=== PATIENT | female | born 2000 | race Caucasian/White ===

== ENCOUNTER 2020-05-17 01:06 | Emergency (ER) | payer BC ==
[2020-05-17 01:15] VITALS: BP 147/88; PULSE 80
--- NOTE | 2020-05-17 01:35 | EDM.PDOC ---
ED HPI GENERAL MEDICAL PROBLEM - General Chief Complaint: Allergic Reaction Stated Complaint: INHALED BLEACH FEELS LIKE THROAT IS CLOSING Time Seen by Provider: 05/17/20 01:19 Source of Information: Reports: Patient History Limitations: Reports: No Limitations - History of Present Illness INITIAL COMMENTS - FREE TEXT/NARRATIVE: Ms. Berrios is a pleasant 19-year-old woman who now presents to the ED stating that she developed the sensation of tightness in her throat, along with a sore throat, after accidentally inhaling some chlorine bleach cleaning spray vapors around 00:45 this morning. She has not previously been exposed to this particular cleaning product. She states that she got some fresh air and drank some water, but her symptoms persisted. Here in the ED, the patient's initial BP is found to be mildly elevated at 147/88, otherwise, she is hemodynamically stable, afebrile, saturating 98% on room air. Other than this morning's events, the patient denies having a recent fever, chills, sore throat, ear pain, nasal or sinus congestion, cough, dyspnea, chest pain, palpitations, nausea, vomiting, constipation, diarrhea, abdominal pain, urinary symptoms, recent weight gain or weight loss, recent bloody bowel movements or black bowel movements, recent joint aches, headaches, or rashes. The patient does not have a PCP. She did not receive an influenza vaccine this season, and declined an offer to receive one here in the ED. - Related Data Allergies Allergy/AdvReac Type Severity Reaction Status Date / Time amoxicillin Allergy Rash Verified 05/17/20 01:12 Home Meds: Home Meds . [No Known Home Meds] 05/17/20 [History] Past Medical History Endocrine/Metabolic History: Reports: Obesity/BMI 30+ Social & Family History - Tobacco Use Tobacco Use Within Last Twelve Months: Vaping (Vaped nicotine x 2 yrs, quit Mar 2020) - Caffeine Use Caffeine Use: Reports: Energy Drinks, Soda - Alcohol Use Alcohol Use History: Yes Alcohol Use Frequency: Socially - Recreational Drug Use Recreational Drug Use: No - Living Situation & Occupation Living situation: Reports: Single, Other (With roommates) Occupation: Employed ([employer]) ED ROS GENERAL - Review of Systems Review Of Systems: Comprehensive ROS is negative, except as noted in HPI. ED EXAM, GENERAL - Physical Exam Exam: See Below Exam Limited By: No Limitations General Appearance: Alert, WD/WN, No Apparent Distress Eye Exam: Bilateral Eye: EOMI, Normal Inspection Ears: Normal External Exam, Normal Canal, Hearing Grossly Normal, Normal TMs Nose: Normal Inspection, Normal Mucosa, No Blood Throat/Mouth: Normal Inspection, Normal Lips, Normal Teeth, Normal Gums, Normal Oropharynx (no erythema or mucous membrane swelling), Normal Voice, No Airway Compromise Head: Atraumatic, Normocephalic Neck: Normal Inspection, Supple, Non-Tender, Full Range of Motion. No: Lymphadenopathy (L), Lymphadenopathy (R) Respiratory/Chest: No Respiratory Distress, Lungs Clear, Normal Breath Sounds, No Accessory Muscle Use. No: Decreased Breath Sounds, Crackles, Rhonchi, Wheezing, Stridor, Prolonged Expiration Cardiovascular: Normal Peripheral Pulses, Regular Rate, Rhythm, No Gallop, No JVD, No Murmur, No Rub Peripheral Pulses: 3+: Radial (L), Radial (R) GI/Abdominal: Normal Bowel Sounds, Soft, Non-Tender, No Organomegaly, No Distention, No Abnormal Bruit, No Mass Back Exam: Normal Inspection, Full Range of Motion, NT Extremities: Normal Inspection, Normal Range of Motion, No Pedal Edema, Normal Capillary Refill Neurological: Alert, Oriented, Normal Cognition, No Motor/Sensory Deficits Psychiatric: Normal Affect Skin Exam: Warm, Dry, Intact, Normal Color, No Rash Course - Vital Signs Last Recorded V/S: Last Vital Signs Temp 36.8 C 05/17/20 01:12 Pulse 80 05/17/20 01:12 Resp 17 05/17/20 01:12 BP 147/88 H 05/17/20 01:12 Pulse Ox 98 05/17/20 01:12 - Re-Assessments/Exams Free Text/Narrative Re-Assessment/Exam: 05/17/20 01:29 As above, the patient accidentally inhaled some vapor from a chlorine bleach cleaning spray that she was using this morning, causing the sensation of throat tightness and soreness. On physical exam, there is no suggestion of a chemical burn to the mucous membranes of her nose or mouth. I explained to the patient that the chlorine bleach may have caused some local irritation, but no actual burn, and no medical treatment is necessary. The sensation should resolve on its own overnight. Departure - Departure Time of Disposition: 01:30 Disposition: Home, Self-Care 01 Condition: Good Clinical Impression: Mucous membrane inflammation - Discharge Information *PRESCRIPTION DRUG MONITORING PROGRAM REVIEWED*: Not Applicable *COPY OF PRESCRIPTION DRUG MONITORING REPORT IN PATIENT DARWIN: Not Applicable Referrals: PCP,None [Primary Care Provider] - Additional Instructions: You were seen in the emergency room after developing the sensation of tightening in your throat and a sore throat after accidentally inhaling some chlorine bleach cleaning spray vapor. On examination, no physical abnormalities were found. Based on your history and physical examination, you are most likely experiencing some mucous membrane irritation due to the chemical. No medical treatment is necessary. It should resolve on its own overnight. If any other problems, please do not hesitate to return to the ER. Sepsis Event Note (ED) - Evaluation Sepsis Screening Result: No Definite Risk - Focused Exam Vital Signs: Vital Signs Temp Pulse Resp BP Pulse Ox 05/17/20 01:12 36.8 C 80 17 147/88 H 98
== END 2020-05-17 01:36 | disposition home or self-care (01) ==
LOC: JD.ED 01:06
DX: K12.1 Other forms of stomatitis (principal); Z87.891 Personal history of nicotine dependence; E66.9 Obesity, unspecified; Z68.54 Body mass index [BMI] pediatric, 95th percentile for age to less than 120% of the 95th percentile for age; Z88.1 Allergy status to other antibiotic agents
CPT/HCPCS: 99282; 99283

== ENCOUNTER 2020-07-12 12:46 | Emergency (ER) | payer BC ==
[2020-07-12 12:59] VITALS: BP 147/87; PULSE 89
--- NOTE | 2020-07-12 13:26 | EDM.PDOC ---
ED HPI GENERAL MEDICAL PROBLEM - General Chief Complaint: Chest Pain Stated Complaint: CHEST PAIN Time Seen by Provider: 07/12/20 13:10 Source of Information: Reports: Patient History Limitations: Reports: No Limitations - History of Present Illness INITIAL COMMENTS - FREE TEXT/NARRATIVE: 19-year-old female presents to the emergency department with complaints of chest pain x4 days. Patient states she was sitting in her car on her break from work when the chest pain developed. She describes it as a stabbing type of chest pain that ranges from her sternum to her shoulder and then into her scapula. Patient states it is fairly constant and does not worsen with taking a deep breath. She does vape. She also reports intermittent right upper quadrant abdominal pain under her right rib. Onset: Gradual Middle Chest Pain Score (Numeric/FACES): 5 - Related Data Allergies Allergy/AdvReac Type Severity Reaction Status Date / Time amoxicillin Allergy Rash Verified 07/12/20 12:55 Home Meds: Home Meds . [No Known Home Meds] 05/17/20 [History] Past Medical History - Past Health History Medical/Surgical History: Denies Medical/Surgical History HEENT History: Reports: None Cardiovascular History: Reports: None Respiratory History: Reports: Bronchitis, Recurrent, SOB Other Respiratory History: meconium staining at , lung issues in past--colds Gastrointestinal History: Reports: None Genitourinary History: Reports: None SIGN INSTALLER History: Reports: None Musculoskeletal History: Reports: None Neurological History: Reports: Migraines Psychiatric History: Reports: Anxiety, Depression Endocrine/Metabolic History: Reports: Obesity/BMI 30+ Hematologic History: Reports: None Immunologic History: Reports: None Oncologic (Cancer) History: Reports: None Dermatologic History: Reports: Other (See Below) Other Dermatologic History: dermatitis itchy rash on arms - Infectious Disease History Infectious Disease History: Reports: None - Past Surgical History Head Surgeries/Procedures: Reports: None HEENT Surgical History: Reports: None GI Surgical History: Reports: None Social & Family History - Family History Family Medical History: No Pertinent Family History HEENT: Reports: None Cardiac: Reports: CAD, Hypertension, Prior Cardiac Arrest Respiratory: Reports: None GI: Reports: None : Reports: Other (See Below) Other Family History: kidney dx OBGYN: Reports: None Musculoskeletal: Reports: None Neurological: Reports: None Psychiatric: Reports: None Endocrine/Metabolic: Reports: None Hematologic: Reports: None Oncologic: Reports: Other (See Below) Other Oncologic Family History: melanoma - Tobacco Use Years of Tobacco use: 3 - Caffeine Use Caffeine Use: Reports: Energy Drinks, Soda - Recreational Drug Use Recreational Drug Use: No - Living Situation & Occupation Living situation: Reports: Single, Other (With roommates) Occupation: Employed ([employer]) ED ROS GENERAL - Review of Systems Review Of Systems: See Below Constitutional: Reports: No Symptoms. Denies: Fever, Chills, Diaphoresis HEENT: Reports: No Symptoms Respiratory: Reports: No Symptoms. Denies: Shortness of Breath, Cough, Sputum Cardiovascular: Reports: Chest Pain (Left chest and shoulder). Denies: Dyspnea on Exertion, Edema, Lightheadedness, Palpitations Endocrine: Reports: No Symptoms GI/Abdominal: Reports: Abdominal Pain (Intermittent right upper quadrant). Denies: Constipation, Diarrhea, Nausea, Vomiting : Reports: No Symptoms Musculoskeletal: Reports: No Symptoms Skin: Reports: No Symptoms Neurological: Reports: No Symptoms Psychiatric: Reports: No Symptoms Hematologic/Lymphatic: Reports: No Symptoms Immunologic: Reports: No Symptoms ED EXAM, GENERAL - Physical Exam Exam: See Below Exam Limited By: No Limitations General Appearance: Alert, WD/WN, No Apparent Distress Eye Exam: Bilateral Eye: PERRL Ears: Normal External Exam, Hearing Grossly Normal Nose: Normal Inspection Throat/Mouth: Normal Inspection, Normal Voice, No Airway Compromise Head: Atraumatic, Normocephalic Neck: Normal Inspection, Supple, Non-Tender, Full Range of Motion Respiratory/Chest: No Respiratory Distress, Lungs Clear, Normal Breath Sounds, No Accessory Muscle Use. No: Chest Non-Tender (Left chest wall tenderness noted with palpation) Cardiovascular: Normal Peripheral Pulses, Regular Rate, Rhythm, No Edema, No Murmur Peripheral Pulses: 2+: Radial (L), Radial (R) GI/Abdominal: Normal Bowel Sounds, Soft, No Distention. No: Tender (Right upper quadrant) (Female) Exam: Deferred Rectal (Female) Exam: Deferred Back Exam: Normal Inspection, Full Range of Motion Extremities: Normal Inspection, Normal Range of Motion, Non-Tender, No Pedal Edema, Normal Capillary Refill Neurological: Alert, Oriented, Normal Cognition Psychiatric: Normal Affect, Normal Mood Skin Exam: Warm, Dry, Intact, Normal Color, No Rash Lymphatic: No Adenopathy #1 Interpretation EKG Date: 07/12/20 Time: 13:45 Rhythm: NSR Rate (Beats/Min): 71 [place]: Normal P-Wave: Present QRS: Normal ST-T: Normal QT: Normal Comparison: NA - No Prior EKG Course - Vital Signs Text/Narrative:: 19-year-old female here for evaluation of left chest pain. Patient states that has been fairly constant for the past 4 days. She denies fever chills, nausea, vomiting, diarrhea. She denies cough. She does admit to vaping. She also complains of intermittent right upper quadrant abdominal pain. Upon assessment chest pain is not worsened by deep breathing however it is exacerbated with palpation to left chest wall and left shoulder. Bowel sounds are positive x4 quadrants. And patient has abdominal pain tenderness to right upper quadrant with deep palpation. She states her last bowel movement was this morning. Denies any issues with constipation or diarrhea. I have ordered a CBC, CMP, troponin, chest x-ray, EKG and a KUB Last Recorded V/S: Last Vital Signs Temp 97.6 F 07/12/20 12:57 Pulse 89 07/12/20 12:57 Resp 20 07/12/20 12:57 BP 147/87 H 07/12/20 12:57 Pulse Ox 99 07/12/20 12:57 - Orders/Labs/Meds Orders: Active Orders 24 hr Category Date Time Status EKG Documentation Completion [RC] ASDIRECTED Care 07/12/20 13:15 Active Abdomen 1V Flat [CR] Stat Exams 07/12/20 13:14 Taken Chest 2V [CR] Stat Exams 07/12/20 13:14 Taken EKG 12 Lead [EK] Stat Ther 07/12/20 13:14 Ordered Labs: Laboratory Tests 07/12/20 07/12/20 Range/Units 13:27 13:27 WBC 7.30 (3.98-10.04) K/mm3 RBC 5.32 H (3.98-5.22) M/mm3 Hgb 10.4 L D (11.2-15.7) gm/dl Hct 35.9 (34.1-44.9) % MCV 67.5 L D (79.4-94.8) fl MCH 19.5 L (25.6-32.2) pg MCHC 29.0 L (32.2-35.5) g/dl RDW Std Deviation 47.5 H (36.4-46.3) fL Plt Count 381 H D (182-369) K/mm3 MPV 10.3 (9.4-12.3) fl Sodium 139 (136-145) mEq/L Potassium 3.9 (3.5-5.1) mEq/L Chloride 104 (98-107) mEq/L Carbon Dioxide 25 (21-32) mEq/L Anion Gap 13.9 (5-15) BUN 12 (7-18) mg/dL Creatinine 0.8 (0.55-1.02) mg/dL Est Cr Clr Drug Dosing 101.78 mL/min Estimated GFR (MDRD) > 60 (>60) mL/min BUN/Creatinine Ratio 15.0 (14-18) Glucose 95 (74-106) mg/dL Calcium 8.9 (8.5-10.1) mg/dL Total Bilirubin 0.5 (0.2-1.0) mg/dL AST 15 (15-37) U/L ALT 23 (14-59) U/L Alkaline Phosphatase 64 (46-116) U/L Troponin I < 0.017 (0.00-0.056) ng/mL Total Protein 7.8 (6.4-8.2) g/dl Albumin 3.8 (3.4-5.0) g/dl Globulin 4.0 gm/dL Albumin/Globulin Ratio 1.0 (1-2) - Re-Assessments/Exams Free Text/Narrative Re-Assessment/Exam: 07/12/20 14:11 Labs reveal WBC 7.30, hemoglobin 10.4, MCV 67.5, chemistry is completely unremarkable and troponin is negative at less than 0.017. PA and lateral of the chest is unremarkable, nothing acute is appreciated. Nothing acute appreciated on KUB other than moderate amount of stool in ascending transverse and descending colon. Patient will be discharged home. Recommend she take MiraLAX daily for the next couple of weeks. Recommend that she takes ibuprofen 600 mg every 6 hours for the next 48 hours or Aleve 1 tab every 12 hours for the next 48 hours for the left chest discomfort. Departure - Departure Time of Disposition: 14:13 Disposition: Home, Self-Care 01 Condition: Good Clinical Impression: Atypical chest pain Constipation Qualifiers: Constipation type: unspecified constipation type Qualified Code(s): K59.00 - Constipation, unspecified Instructions: Nonspecific Chest Pain, Adult, Constipation, Adult, [id number] Referrals: PCP,None [Primary Care Provider] - Forms: ED Department Discharge Additional Instructions: You were seen in the emergency department with complaints of left chest wall pain and right upper quadrant abdominal pain. Labs are unremarkable for any infection, electrolyte abnormalities or heart issues. Your chest x-ray was unremarkable for any pneumonias. I suspect that your chest pain is due to musculoskeletal type pain. Recommended that you take ibuprofen 600 mg every 6 hours for the next 48 hours to decrease inflammation. You can also try to use ice or heat to this area whichever is more comfortable. Your abdominal x-ray showed that you had a significant amount of stool in your bowels. Recommend that you take MiraLAX 1 scoop daily for the next 2 weeks. Follow-up with your primary care provider should your condition not get better in the next week or so. Sepsis Event Note (ED) - Evaluation Sepsis Screening Result: No Definite Risk - Focused Exam Vital Signs: Vital Signs Temp Pulse Resp BP Pulse Ox 07/12/20 12:57 97.6 F 89 20 147/87 H 99 - My Orders Last 24 Hours: My Active Orders 07/12/20 13:14 Abdomen 1V Flat [CR] Stat Chest 2V [CR] Stat EKG 12 Lead [EK] Stat 07/12/20 13:15 EKG Documentation Completion [RC] ASDIRECTED - Assessment/Plan Last 24 Hours: My Active Orders 07/12/20 13:14 Abdomen 1V Flat [CR] Stat Chest 2V [CR] Stat EKG 12 Lead [EK] Stat 07/12/20 13:15 EKG Documentation Completion [RC] ASDIRECTED
--- NOTE | 2020-07-12 14:40 | CR ---
Abdomen: Supine view of the abdomen was obtained. Comparison: No prior abdominal x-ray, previous CT abdomen and pelvis study of 03/22/15. IUD is noted within the pelvis. Bowel gas pattern appears normal. No abnormal calcifications or soft tissue abnormality is seen. No acute bony abnormality is appreciated. Impression: 1. IUD. 2. Nothing acute is seen on supine abdominal x-ray. Diagnostic code #2
--- NOTE | 2020-07-12 14:40 | CR ---
Chest: PA and lateral views of the chest were obtained. Comparison: Prior chest x-ray of 01/15/19. Heart size and mediastinum are normal. Lungs are clear with no acute parenchymal change. Bony structures appear within normal limits for the patient's age. Impression: 1. Nothing acute is seen on 2 view chest x-ray. Diagnostic code #1
== END 2020-07-12 14:28 | disposition home or self-care (01) ==
LOC: JD.ED 12:46
DX: R07.89 Other chest pain (principal); K59.00 Constipation, unspecified; F17.290 Nicotine dependence, other tobacco product, uncomplicated; E66.9 Obesity, unspecified; Z68.41 Body mass index [BMI] 40.0-44.9, adult; Z88.0 Allergy status to penicillin
CPT/HCPCS: 36415; 71046; 71046-26; 74018; 74018-26; 80053; 84484; 85027; 93005; 93010; 99284; 99285-25

== ENCOUNTER 2021-10-03 19:25 | Emergency (ER) | payer BC ==
[2021-10-03 23:06] VITALS: BP 136/79; PULSE 73
== END 2021-10-03 23:04 | disposition home or self-care (01) ==
LOC: JD.ED 19:25
DX: R07.89 Other chest pain (principal); E66.9 Obesity, unspecified; Z88.0 Allergy status to penicillin; Z86.16 Personal history of COVID-19; Z68.41 Body mass index [BMI] 40.0-44.9, adult
CPT/HCPCS: 71046; 71046-26; 99283; 99284-25